=== PATIENT | female | born 1955 | race Two or more races ===

== ENCOUNTER 2017-10-21 12:02 | Inpatient (IN) | payer MEDICAID ==
[~2017-10-21] VITALS: Ht 157.5 cm; Wt 69.3 kg
[2017-10-21] MEDS ORDERED: SODIUM CHLORIDE 0.9% 1,000 ML IV ONE (12:43)
[2017-10-21 13:24] LABS: Basophils # (auto) 0 uL; Basophils % (auto) 0.4 % (0.0-2.0); Eosinophils # (auto) 0.2 uL; Hematocrit 40.8 % (36.0-46.0); Hemoglobin 14.3 g/dL (12.2-16.2); Lymphocytes # (auto) 1.5 uL; Mean Corpuscular Hemoglobin 28.8 pg (28.0-32.0); Mean Corpuscular Volume 82.3 fL (80.0-100.0); Monocytes # (auto) 0.4 uL; Monocytes % (auto) 7.4 % (0.0-12.0); Neutrophils # (auto) 3.4 uL; Neutrophils % (auto) 62.2 % (37.0-80.0); Nucleated Red Blood Cells % 0.1 %; Platelet Count (auto) 152 10^3/uL (140-450); Red Blood Cells 4.95 10^6/uL (4.0-5.20); Red Cell Distribution Width 14.8 % (11.8-14.3); White Blood Cell 5.5 10^3/uL (4.4-10.8)
[2017-10-21] MEDS ORDERED: LABETALOL HCL 5 MG/ML ML 20ML VIAL IV ONE (13:45)
[2017-10-21 14:00] LABS: Albumin 3.5 g/dL (3.4-5.0); BUN/Creatinine Ratio 29.9; Bilirubin, Total 0.6 mg/dL (0.2-1.0); Calcium 8.4 mg/dL (8.5-10.1); Magnesium 2.5 mg/dL (1.6-2.6); Potassium 3.9 mmol/L (3.5-5.1); Total Protein 6.8 g/dL (6.4-8.2)
[2017-10-21 15:57] LABS: Urine Bacteria NONE SEEN /hpf (None Seen); Urine Blood Negative /uL (Negative); Urine Specific Gravity 1.012 (1.001-1.035); Urine WBC <1 /hpf (0 - 5)
[2017-10-21] MEDS ORDERED: NALBUPHINE HCL 10 MG/1ml INJECTION IV ONE (16:00)
[2017-10-21 16:08] LABS: INR 0.88 (0.9-1.15); Partial Thromboplastin Time 26.9 sec (23.78-33.04); Prothrombin Time 9.5 sec (9.27-12.13)
[2017-10-21] MEDS: SODIUM CHLORIDE 0.9% 1,000 ML IV SCH (16:13)
[2017-10-21] MEDS ORDERED: NITROGLYCERIN 0.4 MG SL TAB SL PRN (16:15)
[2017-10-21] MEDS ORDERED: MORPHINE SULF INJ 2 MG/ML SYRINGE 1ML IV PRN (16:15)
[2017-10-21] MEDS ORDERED: DEXTROSE (50%) 50ML SYRG IV PRN (16:15)
[2017-10-21] MEDS ORDERED: LACTULOSE 20Gm/30ML SOLN PO PRN (16:15)
[2017-10-21] MEDS ORDERED: LORazepam 0.5 MG TAB PO PRN (16:15)
[2017-10-21] MEDS: InsuLIN REG 1unit/0.01ml Soln (100units/ml) SC SCH ×2 (17:00→21:57)
[2017-10-21] MEDS: ACCU-CHEK COMFORT CURVE STRIP VI SCH ×2 (17:00→21:35)
[2017-10-21 17:08] LABS: Alcohol, Urine < 3.0 mg/dL (0-5); Amphetamine Screen, Urine NEGATIVE (NEGATIVE); Barbiturate Scree,Urine NEGATIVE (NEGATIVE); Benzodiazephine Screen, Urine NEGATIVE (NEGATIVE); Cannabinoid Screen, Urine NEGATIVE (NEGATIVE); Cocaine Screen, Urine NEGATIVE (NEGATIVE); Opiate Scree,Urine NEGATIVE (NEGATIVE); Phencyclidine Screen, Urine NEGATIVE (NEGATIVE)
[2017-10-21] MEDS ORDERED: METF-370 PO (19:39)
[2017-10-21 21:34] VITALS: BP 189/97
[2017-10-21] MEDS: MORPHINE SULF INJ 2 MG/ML SYRINGE 1ML IV PRN (21:36)
[2017-10-21] MEDS ORDERED: ATORVASTATIN 20 MG TAB PO SCH (22:00)
[2017-10-22] MEDS: LABETALOL HCL 5 MG/ML ML 20ML VIAL IV PRN ×6 (00:41→22:38)
[2017-10-22] MEDS: SODIUM CHLORIDE 0.9% 1,000 ML IV SCH ×3 (01:56→22:10)
[2017-10-22] MEDS: TEMAZEPAM 15 MG CAP PO PRN ×2 (01:56→22:34)
[2017-10-22] MEDS: MORPHINE SULF INJ 2 MG/ML SYRINGE 1ML IV PRN ×2 (04:43→09:16)
[2017-10-22 05:29] VITALS: BP 151/86
[2017-10-22 06:02] LABS: Cholesterol 261 mg/dL (< 200); HDL Cholesterol 20 mg/dL (40-59); Triglycerides 1270 mg/dL (< 150)
[2017-10-22] MEDS: ACCU-CHEK COMFORT CURVE STRIP VI SCH ×4 (07:00→22:00)
[2017-10-22] MEDS: InsuLIN REG 1unit/0.01ml Soln (100units/ml) SC SCH ×4 (07:00→22:00)
[2017-10-22] MEDS: traMADol HCL 50 MG TAB PO PRN ×2 (07:47→22:34)
[2017-10-22 09:00] VITALS: BP 174/80
[2017-10-22] MEDS: PANTOPRAZOLE 40 MG TAB PO SCH (09:15)
[2017-10-22] MEDS: ENOXAPARIN SOD 40 MG/0.4 ML SYRINGE SC SCH (09:15)
[2017-10-22] MEDS ORDERED: ASPirin 81 mg TAB PO SCH (10:00)
[2017-10-22 13:00] VITALS: BP 192/95
[2017-10-22 17:00] VITALS: BP 173/88
[2017-10-22 22:00] VITALS: BP 180/121
[2017-10-22] MEDS: Niacin SR 500mg TAB PO SCH (22:34)
[2017-10-22] MEDS: ATORVASTATIN 20 MG TAB PO SCH (22:35)
[2017-10-23] VITALS (9 sets, daily range): BP systolic 152–177; BP diastolic 77–93
[2017-10-23] MEDS ORDERED: cloNIDine HCL 0.1 MG TAB PO ONE (00:30)
[2017-10-23] MEDS: InsuLIN REG 1unit/0.01ml Soln (100units/ml) SC SCH ×4 (06:46→21:40)
[2017-10-23] MEDS: ACCU-CHEK COMFORT CURVE STRIP VI SCH ×4 (06:46→21:40)
[2017-10-23] MEDS: traMADol HCL 50 MG TAB PO PRN ×2 (06:47→21:05)
[2017-10-23] MEDS: PANTOPRAZOLE 40 MG TAB PO SCH (10:05)
[2017-10-23] MEDS: ASPirin-EC 81 mg tab PO SCH (10:05)
[2017-10-23] MEDS: ENOXAPARIN SOD 40 MG/0.4 ML SYRINGE SC SCH (10:06)
[2017-10-23] MEDS: LABETALOL HCL 5 MG/ML ML 20ML VIAL IV PRN ×4 (10:07→23:53)
[2017-10-23 10:45] LABS: Folate (Folic Acid) 12.91 ng/mL (5.38-24)
[2017-10-23] MEDS: MORPHINE SULF INJ 2 MG/ML SYRINGE 1ML IV PRN ×2 (12:44→18:06)
[2017-10-23] MEDS: METOPROLOL TARTRATE 25 MG TAB PO SCH ×2 (15:42→21:40)
[2017-10-23] MEDS: SODIUM CHLORIDE 0.9% 1,000 ML IV SCH (18:04)
[2017-10-23] MEDS: PROMETHAZINE HCL 25 MG/ML 1ML IV PRN (18:07)
[2017-10-23] MEDS: Niacin SR 500mg TAB PO SCH (21:40)
[2017-10-23] MEDS: ATORVASTATIN 20 MG TAB PO SCH (21:40)
[2017-10-23] MEDS: TEMAZEPAM 15 MG CAP PO PRN (21:42)
[2017-10-24] VITALS (9 sets, daily range): BP systolic 128–228; BP diastolic 75–120
[2017-10-24] MEDS: LABETALOL HCL 5 MG/ML ML 20ML VIAL IV PRN ×5 (02:26→20:09)
[2017-10-24] MEDS: traMADol HCL 50 MG TAB PO PRN ×3 (04:48→19:54)
[2017-10-24] MEDS: InsuLIN REG 1unit/0.01ml Soln (100units/ml) SC SCH ×4 (06:27→22:34)
[2017-10-24] MEDS: SODIUM CHLORIDE 0.9% 1,000 ML IV SCH ×2 (06:27→19:04)
[2017-10-24] MEDS: ACCU-CHEK COMFORT CURVE STRIP VI SCH ×4 (06:27→22:34)
[2017-10-24] MEDS: PANTOPRAZOLE 40 MG TAB PO SCH (08:02)
[2017-10-24] MEDS: METOPROLOL TARTRATE 25 MG TAB PO SCH ×3 (08:02→22:53)
[2017-10-24] MEDS: ASPirin-EC 81 mg tab PO SCH (08:03)
[2017-10-24] MEDS: ENOXAPARIN SOD 40 MG/0.4 ML SYRINGE SC SCH (08:03)
[2017-10-24] MEDS: diphenhdrAMINE HCL 50 MG/1 ML VL IV PRN ×2 (08:05→15:46)
[2017-10-24] MEDS ORDERED: cloNIDine HCL 0.1 MG TAB ONE (20:25)
[2017-10-24] MEDS ORDERED: cloNIDine 0.2 mg/24hr 7DAY PATCH TD ONE (20:30)
[2017-10-24] MEDS ORDERED: cloNIDine HCL 0.1 MG TAB PO ONE (20:30)
[2017-10-24] MEDS: MORPHINE SULF INJ 2 MG/ML SYRINGE 1ML IV PRN (20:33)
[2017-10-24] MEDS: PROMETHAZINE HCL 25 MG/ML 1ML IV PRN (20:33)
[2017-10-24] MEDS ORDERED: hydrALAZINE HCL 20 MG/ML VL IV ONE (21:00)
[2017-10-24] MEDS: Niacin SR 500mg TAB PO SCH (22:33)
[2017-10-24] MEDS: ATORVASTATIN 20 MG TAB PO SCH (22:33)
[2017-10-24] MEDS: TEMAZEPAM 15 MG CAP PO PRN (22:42)
[2017-10-25] VITALS (7 sets, daily range): BP systolic 117–162; BP diastolic 67–93
[2017-10-25] MEDS: ACCU-CHEK COMFORT CURVE STRIP VI SCH ×4 (06:22→21:39)
[2017-10-25] MEDS: InsuLIN REG 1unit/0.01ml Soln (100units/ml) SC SCH ×4 (06:22→21:39)
[2017-10-25] MEDS: traMADol HCL 50 MG TAB PO PRN (08:52)
[2017-10-25] MEDS: SODIUM CHLORIDE 0.9% 1,000 ML IV SCH ×2 (09:23→21:36)
[2017-10-25] MEDS: METOPROLOL TARTRATE 25 MG TAB PO SCH ×3 (10:00→21:39)
[2017-10-25] MEDS: ASPirin-EC 81 mg tab PO SCH (10:39)
[2017-10-25] MEDS: PANTOPRAZOLE 40 MG TAB PO SCH (10:39)
[2017-10-25] MEDS: ENOXAPARIN SOD 40 MG/0.4 ML SYRINGE SC SCH (10:40)
[2017-10-25] MEDS: ACETAMINOPHEN 500 MG TAB PO PRN (10:50)
[2017-10-25] MEDS: ATORVASTATIN 20 MG TAB PO SCH (21:38)
[2017-10-25] MEDS: Niacin SR 500mg TAB PO SCH (21:42)
[2017-10-25] MEDS: TEMAZEPAM 15 MG CAP PO PRN (22:51)
[2017-10-25] MEDS: LABETALOL HCL 5 MG/ML ML 20ML VIAL IV PRN (23:08)
[2017-10-26] MEDS: LABETALOL HCL 5 MG/ML ML 20ML VIAL IV PRN ×3 (01:21→22:52)
[2017-10-26] MEDS: ACETAMINOPHEN 500 MG TAB PO PRN ×3 (02:10→19:22)
[2017-10-26] MEDS ORDERED: hydrALAZINE HCL 20 MG/ML VL IV ONE (03:00)
[2017-10-26 05:00] VITALS: BP 147/79
[2017-10-26] MEDS: ACCU-CHEK COMFORT CURVE STRIP VI SCH ×4 (06:05→21:25)
[2017-10-26] MEDS: InsuLIN REG 1unit/0.01ml Soln (100units/ml) SC SCH ×4 (06:10→21:25)
[2017-10-26] MEDS: MORPHINE SULF INJ 2 MG/ML SYRINGE 1ML IV PRN ×2 (07:03→10:31)
[2017-10-26] MEDS: SODIUM CHLORIDE 0.9% 1,000 ML IV SCH ×2 (08:34→21:04)
[2017-10-26 08:35] VITALS: BP 162/98
[2017-10-26] MEDS: METOPROLOL TARTRATE 25 MG TAB PO SCH ×2 (10:32→21:27)
[2017-10-26] MEDS: ENOXAPARIN SOD 40 MG/0.4 ML SYRINGE SC SCH (10:32)
[2017-10-26] MEDS: PANTOPRAZOLE 40 MG TAB PO SCH (10:33)
[2017-10-26] MEDS: ASPirin-EC 81 mg tab PO SCH (10:33)
[2017-10-26 12:35] VITALS: BP 152/76
[2017-10-26 17:00] VITALS: BP 135/81
[2017-10-26] MEDS: Niacin SR 500mg TAB PO SCH (21:25)
[2017-10-26] MEDS: ATORVASTATIN 20 MG TAB PO SCH (21:26)
[2017-10-26 22:00] VITALS: BP 180/97
[2017-10-26] MEDS: diphenhdrAMINE HCL 50 MG/1 ML VL IV PRN (22:16)
[2017-10-27] MEDS: LABETALOL HCL 5 MG/ML ML 20ML VIAL IV PRN ×2 (00:22→02:31)
[2017-10-27] MEDS ORDERED: cloNIDine HCL 0.1 MG TAB PO ONE (04:00)
[2017-10-27 05:00] VITALS: BP 163/92
[2017-10-27] MEDS: ACCU-CHEK COMFORT CURVE STRIP VI SCH ×2 (06:08→13:11)
[2017-10-27] MEDS: InsuLIN REG 1unit/0.01ml Soln (100units/ml) SC SCH ×2 (06:08→13:11)
[2017-10-27 09:00] VITALS: BP 154/81
[2017-10-27] MEDS: ASPirin-EC 81 mg tab PO SCH (10:56)
[2017-10-27] MEDS: METOPROLOL TARTRATE 25 MG TAB PO SCH (10:56)
[2017-10-27] MEDS: PANTOPRAZOLE 40 MG TAB PO SCH (10:56)
[2017-10-27] MEDS: ENOXAPARIN SOD 40 MG/0.4 ML SYRINGE SC SCH (10:57)
[2017-10-27 13:00] VITALS: BP 168/96
[2017-10-27 15:38] VITALS: BP 143/88
== END 2017-10-27 16:44 | disposition home or self-care (01) | DRG 45 ==
LOC: ER 12:02 → TELE 12:03 → TELE-WESTW 18:09
PROVIDERS: ADMIT Internal Medicine; ATTEND Internal Medicine Pulmonary Disease
DX: I63.9 Cerebral infarction, unspecified (principal); E11.65 Type 2 diabetes mellitus with hyperglycemia; I10 Essential (primary) hypertension; I16.0 Hypertensive urgency; G81.94 Hemiplegia, unspecified affecting left nondominant side; E78.5 Hyperlipidemia, unspecified; F41.9 Anxiety disorder, unspecified; R13.10 Dysphagia, unspecified; R47.1 Dysarthria and anarthria; R29.810 Facial weakness; E78.00 Pure hypercholesterolemia, unspecified; R91.1 Solitary pulmonary nodule; Z83.3 Family history of diabetes mellitus
CPT/HCPCS: 36415; 70450; 71046; 71250; 80053; 80061; 80307; 81001; 82550; 82607; 82746; 82962; 83036; 83735; 84443; 85025; 85610; 85652; 85730; 92610; 93005; 93306; 93886; 96361; 96374; 96375; 97110; 97116; 97530; J1815

== ENCOUNTER 2018-05-10 23:03 | Emergency (ER) | payer MEDICAID ==
[~2018-05-10] VITALS: Ht 157.5 cm; Wt 64.4 kg
[~2018-05-10 23:03] MED LIST: METF-370 PO
[2018-05-10] MEDS ORDERED: cloNIDine HCL 0.1 MG TAB ONE (23:53)
[2018-05-11] MEDS ORDERED: cloNIDine HCL 0.1 MG TAB PO ONE (00:15)
[2018-05-11] MEDS ORDERED: ONDANSETRON ODT 4 MG TAB PO ONE ×2 (00:15)
[2018-05-11] MEDS ORDERED: HYDROcodone-ACET 5/325MG TAB PO ONE ×2 (00:15)
[2018-05-11 00:45] VITALS: BP 212/127
[2018-05-11 00:53] LABS: Basophils # (auto) 0 uL; Basophils % (auto) 0.6 % (0.0-2.0); Eosinophils # (auto) 0.1 uL; Eosinophils % (auto) 1.1 % (0.0-7.0); Hematocrit 48.5 % (36.0-46.0); Hemoglobin 16.9 g/dL (12.2-16.2); Lymphocytes # (auto) 1.9 uL; Lymphocytes % (auto) 24.7 % (10.0-50.0); Mean Corpuscular Hemoglobin 29.9 pg (28.0-32.0); Mean Corpuscular Hgb Conc. 34.8 g/dL (32.0-36.0); Mean Corpuscular Volume 85.9 fL (80.0-100.0); Monocytes # (auto) 0.5 uL; Monocytes % (auto) 6.8 % (0.0-12.0); Neutrophils # (auto) 5.3 uL; Neutrophils % (auto) 66.8 % (37.0-80.0); Nucleated Red Blood Cells % 0.4 %; Platelet Count (auto) 163 10^3/uL (140-450); Red Blood Cells 5.65 10^6/uL (4.0-5.20); Red Cell Distribution Width 14.1 % (11.8-14.3); White Blood Cell 7.9 10^3/uL (4.4-10.8)
[2018-05-11 01:03] LABS: Calcium 8.5 mg/dL (8.5-10.1); Potassium 3.8 mmol/L (3.5-5.1)
[2018-05-11 01:12] LABS: Bilirubin, Total 0.5 mg/dL (0.2-1.0)
[2018-05-11] MEDS ORDERED: ONDANSETRON HCL 4 MG/2 ML VIAL IV ONE (01:15)
[2018-05-11] MEDS ORDERED: HYDROmorphone HCL 2 MG/ML VL IV ONE (01:15)
[2018-05-11 02:21] LABS: BUN/Creatinine Ratio 21.7
== END 2018-05-11 02:45 | disposition home or self-care (01) ==
LOC: ER 23:03
DX: K02.9 Dental caries, unspecified (principal); E11.9 Type 2 diabetes mellitus without complications; I10 Essential (primary) hypertension; R51 Headache
CPT/HCPCS: 36415; 70486; 80053; 82962; 85025; 96374; 96375; 99284; J1170; J2405; Q0162

== ENCOUNTER 2018-08-14 19:21 | Emergency (ER) | payer MEDICAID, OTHER ==
[~2018-08-14] VITALS: Ht 152.4 cm; Wt 63.5 kg
[2018-08-14] MEDS ORDERED: cloNIDine HCL 0.1 MG TAB PO ONE (19:45)
[2018-08-14 19:56] LABS: Basophils # (auto) 0 uL; Basophils % (auto) 0.3 % (0.0-2.0); Eosinophils # (auto) 0.1 uL; Eosinophils % (auto) 2.4 % (0.0-7.0); Hematocrit 43.5 % (36.0-46.0); Hemoglobin 14.6 g/dL (12.2-16.2); Lymphocytes # (auto) 1.1 uL; Lymphocytes % (auto) 20.4 % (10.0-50.0); Mean Corpuscular Hemoglobin 28.8 pg (28.0-32.0); Mean Corpuscular Hgb Conc. 33.6 g/dL (32.0-36.0); Mean Corpuscular Volume 85.6 fL (80.0-100.0); Monocytes # (auto) 0.2 uL; Monocytes % (auto) 4.1 % (0.0-12.0); Neutrophils % (auto) 72.8 % (37.0-80.0); Nucleated Red Blood Cells % 0.1 %; Platelet Count (auto) 159 10^3/uL (140-450); Red Blood Cells 5.09 10^6/uL (4.0-5.20); Red Cell Distribution Width 14.2 % (11.8-14.3); White Blood Cell 5.4 10^3/uL (4.4-10.8)
[2018-08-14 20:09] LABS: INR 0.91 (0.9-1.15); Partial Thromboplastin Time 25.4 sec (23.78-33.04); Prothrombin Time 9.8 sec (9.27-12.13)
[2018-08-14 20:10] LABS: Albumin 3.6 g/dL (3.4-5.0); Anion Gap 7 (5-15); Blood Urea Nitrogen 17 mg/dL (7-18); Calcium 8.2 mg/dL (8.5-10.1); Carbon Dioxide 26 mmol/L (21-32); Chloride 104 mmol/L (98-107); Magnesium 1.8 mg/dL (1.6-2.6); Potassium 3.3 mmol/L (3.5-5.1); Sodium 137 mmol/L (136-145)
[2018-08-14 20:19] LABS: Alanine Aminotransferase 24 U/L (13-56); Alkaline Phosphatase 124 U/L (45-117); Aspartate Aminotransferase 14 U/L (15-37); BUN/Creatinine Ratio 17.3; Bilirubin, Total 0.4 mg/dL (0.2-1.0); GFR African American 74 mL/min; GFR Non-African American 61 mL/min; Total Protein 6.9 g/dL (6.4-8.2)
[2018-08-14 20:30] LABS: Glucose 439 mg/dL (74-106)
[2018-08-14] MEDS ORDERED: MORPHINE SULF INJ 2 MG/ML SYRINGE 1ML IV ONE (20:45)
[2018-08-14] MEDS ORDERED: POTASSIUM CHL 20 Meq TABLET PO ONE (20:45)
[2018-08-14] MEDS ORDERED: ONDANSETRON HCL 4 MG/2 ML VIAL IV ONE (20:45)
[2018-08-14] MEDS ORDERED: SODIUM CHLORIDE 0.9% 1,000 ML IV ONE (20:45)
[2018-08-14] MEDS ORDERED: InsuLIN REG 1unit/0.01ml Soln (100units/ml) IV ONE (20:45)
[2018-08-14] MEDS ORDERED: MORPHINE SULFATE 4 MG/ML SYR/VIAL IV ONE (21:00)
[2018-08-14 22:27] VITALS: BP 148/87
== END 2018-08-14 23:37 | disposition home or self-care (01) ==
LOC: MERGE 19:32 → EDBD 19:32 → ER 19:32
DX: S02.81XA Fracture of other specified skull and facial bones, right side, initial encounter for closed fracture (principal); S05.11XA Contusion of eyeball and orbital tissues, right eye, initial encounter; E11.65 Type 2 diabetes mellitus with hyperglycemia; E87.6 Hypokalemia; I10 Essential (primary) hypertension; F17.210 Nicotine dependence, cigarettes, uncomplicated; Z86.73 Personal history of transient ischemic attack (TIA), and cerebral infarction without residual deficits; W19.XXXA Unspecified fall, initial encounter; Y93.89 Activity, other specified; Y99.8 Other external cause status; Y92.89 Other specified places as the place of occurrence of the external cause
CPT/HCPCS: 36415; 70450; 70486; 71045; 72125; 72128; 72131; 73562; 80053; 82010; 82962; 83735; 83880; 84484; 85025; 85379; 85610; 85730; 93005; 96361; 96374; 96375; 99284; J1815; J2270; J2405; J7030

== ENCOUNTER 2020-06-23 13:41 | Inpatient (IN) | payer MEDICAID ==
[~2020-06-23] VITALS: Ht 157.5 cm; Wt 54.9 kg
[2020-06-23] MEDS ORDERED: SODIUM CHLORIDE 0.9% 1,000 ML IV ONE ×2 (14:00)
[2020-06-23 14:46] LABS: Basophils # (auto) 0.1 10 ^3/uL (0-0.2); Eosinophils # (auto) 0.2 10 ^3/uL (0-0.8); Eosinophils % (auto) 2.3 % (0.0-7.0); Hemoglobin 13.2 g/dL (12.2-16.2); Mean Corpuscular Volume 79.6 fL (80.0-100.0); Nucleated Red Blood Cells % 0.1 %
[2020-06-23 14:47] LABS: Basophils % (auto) 0.6 % (0.0-2.0); Hematocrit 40.1 % (36.0-46.0); Lymphocytes # (auto) 1.1 10 ^3/uL (0.4-5.4); Lymphocytes % (auto) 13.2 % (10.0-50.0); Mean Corpuscular Hemoglobin 26.1 pg (28.0-32.0); Mean Corpuscular Hgb Conc. 32.8 g/dL (32.0-36.0); Monocytes # (auto) 0.5 10 ^3/uL (0-1.3); Monocytes % (auto) 5.5 % (0.0-12.0); Neutrophils # (auto) 6.7 10 ^3/uL (1.6-8.6); Neutrophils % (auto) 78.4 % (37.0-80.0); Platelet Count (auto) 198 10^3/uL (140-450); Red Blood Cells 5.04 10^6/uL (4.0-5.20); Red Cell Distribution Width 17.3 % (11.8-14.3); White Blood Cell 8.5 10^3/uL (4.4-10.8)
[2020-06-23 14:55] LABS: INR 0.96 (0.9-1.15); Partial Thromboplastin Time 24.8 sec (23.0-31.2)
[2020-06-23 15:00] LABS: Albumin 3.4 g/dL (3.4-5.0); Calcium 8.3 mg/dL (8.5-10.1); Potassium 3.5 mmol/L (3.5-5.1)
[2020-06-23] MEDS ORDERED: HYDROcodone-ACET 5/325MG TAB PO ONE (15:00)
[2020-06-23 15:09] LABS: BUN/Creatinine Ratio 19.9; Bilirubin, Total 0.7 mg/dL (0.2-1.0); Total Protein 6.8 g/dL (6.4-8.2)
[2020-06-23] MEDS ORDERED: InsuLIN REG 1unit/0.01ml Soln (100units/ml) IV ONE (15:15)
[2020-06-23 16:03] LABS: Urine Bacteria NONE SEEN /hpf (None Seen); Urine Blood Negative /uL (Negative); Urine Hyaline Cast FEW /lpf (0 - 2); Urine Specific Gravity 1.024 (1.001-1.035); Urine WBC 8 /hpf (0 - 5)
[2020-06-23] MEDS ORDERED: cefTRIAXone 1GM/50ML D5W 50 ML IV ONE (17:00)
[2020-06-23] MEDS ORDERED: DEXTROSE (50%) 50ML SYRG IV PRN ×2 (17:15→18:15)
[2020-06-23] MEDS ORDERED: INSULIN LANTUS (GLARGINE) 1 /0.01ml (100units/ml) SC SCH (17:15)
[2020-06-23] MEDS ORDERED: SODIUM CHLORIDE 0.9% 1,000 ML IV SCH (17:15)
[2020-06-23] MEDS ORDERED: levoFLOXacin 500 MG TAB PO ONE (17:15)
[2020-06-23] MEDS ORDERED: MORPHINE SULF INJ 2 MG/ML SYRINGE 1ML IV PRN ×2 (17:15→18:15)
[2020-06-23] MEDS ORDERED: ONDANSETRON HCL 4 MG/2 ML VIAL IV PRN ×2 (17:15→18:15)
[2020-06-23] MEDS ORDERED: NITROGLYCERIN 0.4 MG SL TAB SL PRN ×2 (17:15→18:15)
[2020-06-23] MEDS ORDERED: ACETAMINOPHEN 325 MG TAB PO PRN ×2 (17:15→18:15)
[2020-06-23] MEDS ORDERED: HYDROcodone-ACET 5/325MG TAB PO PRN ×2 (17:15→18:15)
[2020-06-23] MEDS ORDERED: INSULIN LANTUS (GLARGINE) 1 /0.01ml (100units/ml) SC ONE (18:15)
[2020-06-23] MEDS: SODIUM CHLORIDE 0.9% 1,000 ML IV SCH (18:28)
[2020-06-23] MEDS: InsuLIN REG 1unit/0.01ml Soln (100units/ml) SC SCH ×2 (18:41→21:23)
[2020-06-23] MEDS: INSULIN LANTUS (GLARGINE) 1 /0.01ml (100units/ml) SC SCH (18:42)
[2020-06-23] MEDS: ACCU-CHEK COMFORT CURVE STRIP VI SCH ×3 (18:42→23:57)
[2020-06-23] MEDS ORDERED: ACCU-CHEK COMFORT CURVE STRIP VI SCH (20:00)
[2020-06-23] MEDS ORDERED: InsuLIN REG 1unit/0.01ml Soln (100units/ml) SC SCH (20:00)
[2020-06-23] MEDS ORDERED: ATORVASTATIN 20 MG TAB PO SCH (22:00)
[2020-06-23 23:10] VITALS: BP 112/70
[2020-06-24] MEDS: SODIUM CHLORIDE 0.9% 1,000 ML IV SCH (03:40)
[2020-06-24] MEDS: InsuLIN REG 1unit/0.01ml Soln (100units/ml) SC SCH ×5 (03:58→16:25)
[2020-06-24] MEDS: ACCU-CHEK COMFORT CURVE STRIP VI SCH ×4 (03:58→16:24)
[2020-06-24 05:00] VITALS: BP 103/62
[2020-06-24 07:43] LABS: Basophils # (auto) 0 10 ^3/uL (0-0.2); Monocytes # (auto) 0.8 10 ^3/uL (0-1.3)
[2020-06-24 07:45] LABS: Basophils % (auto) 0.3 % (0.0-2.0); Eosinophils # (auto) 0.6 10 ^3/uL (0-0.8); Eosinophils % (auto) 5.1 % (0.0-7.0); Hematocrit 37.1 % (36.0-46.0); Hemoglobin 12.5 g/dL (12.2-16.2); Lymphocytes % (auto) 27.5 % (10.0-50.0); Mean Corpuscular Hgb Conc. 33.8 g/dL (32.0-36.0); Mean Corpuscular Volume 77.1 fL (80.0-100.0); Monocytes % (auto) 7.6 % (0.0-12.0); Neutrophils # (auto) 6.4 10 ^3/uL (1.6-8.6); Neutrophils % (auto) 59.5 % (37.0-80.0); Nucleated Red Blood Cells % 0.1 %; Platelet Count (auto) 220 10^3/uL (140-450); Red Blood Cells 4.81 10^6/uL (4.0-5.20); White Blood Cell 10.8 10^3/uL (4.4-10.8)
[2020-06-24 07:47] LABS: Calcium 7.8 mg/dL (8.5-10.1)
[2020-06-24 07:49] LABS: BUN/Creatinine Ratio 22.1
[2020-06-24 07:51] LABS: Potassium 2.7 mmol/L (3.5-5.1)
[2020-06-24 08:00] VITALS: BP 111/69
[2020-06-24] MEDS ORDERED: POTASSIUM CHL 20 Meq TABLET PO ONE (08:15)
[2020-06-24] MEDS: SOD CHL 0.9%/ KCL 20MEQ 1,000 ML IV SCH ×2 (08:23→18:15)
[2020-06-24] MEDS: POTASSIUM CHL 20MEQ/100ML 100 ML IV SCH ×2 (08:47→10:54)
[2020-06-24 09:00] VITALS: BP 116/69
[2020-06-24] MEDS: INSULIN LANTUS (GLARGINE) 1 /0.01ml (100units/ml) SC SCH (09:54)
[2020-06-24] MEDS ORDERED: levoFLOXacin 500 MG TAB PO SCH (10:00)
[2020-06-24] MEDS ORDERED: ASPirin 81 mg TAB PO SCH (10:00)
[2020-06-24 13:00] VITALS: BP 123/77
[2020-06-24 17:00] VITALS: BP 152/80
[2020-06-24] MEDS ORDERED: LEVO-28 PO (17:32)
[2020-06-24] MEDS ORDERED: ENAL2.5T7 PO (17:35)
[2020-06-24] MEDS ORDERED: ATOR40TA52 PO (17:35)
[2020-06-24] MEDS ORDERED: METF-370 PO (17:35)
[2020-06-24] MEDS ORDERED: AMLO-489 PO (17:35)
[2020-06-24] MEDS ORDERED: CARV6.2551 PO (17:35)
[2020-06-24] MEDS ORDERED: ASPI-231 PO (17:35)
[2020-06-24] MEDS ORDERED: HYDR25TA5 PO (17:35)
[2020-06-24 18:25] VITALS: BP 123/77
== END 2020-06-24 19:46 | disposition home health service (06) | DRG 207 ==
LOC: ER 13:41 → TELE 13:42 → TELE-EAST 23:10
PROVIDERS: ADMIT Internal Medicine; ATTEND Internal Medicine
DX: I95.9 Hypotension, unspecified (principal); N39.0 Urinary tract infection, site not specified; E11.65 Type 2 diabetes mellitus with hyperglycemia; E78.5 Hyperlipidemia, unspecified; I10 Essential (primary) hypertension; Z20.822 Contact with and (suspected) exposure to COVID-19; Z86.73 Personal history of transient ischemic attack (TIA), and cerebral infarction without residual deficits; N17.9 Acute kidney failure, unspecified
CPT/HCPCS: 36415; 36600; 71045; 80048; 80053; 81001; 82010; 82805; 82962; 84132; 84484; 85025; 85610; 85730; 87040; 87086; 87426; 93005; 96361; 96365; 96366; 96372; 96375; 99291; G0378; J0696; J1815; J2405; J3480

== ENCOUNTER 2021-07-23 14:32 | Inpatient (IN) | payer MEDICAID ==
[~2021-07-23] VITALS: Ht 162.6 cm; Wt 55.3 kg
[~2021-07-23 14:32] MED LIST changes: +AMLO-489 PO; +ASPI1TAB20 PO; +ATOR40TA52 PO; +CARV6.2551 PO; +LEVO-28 PO
[2021-07-23 15:39] LABS: Basophils # (auto) 0.1 10 ^3/uL (0-0.2); Eosinophils # (auto) 0.1 10 ^3/uL (0-0.8); Hematocrit 24.4 % (36.0-46.0); Mean Corpuscular Hemoglobin 12.1 pg (28.0-32.0); Monocytes # (auto) 0.2 10 ^3/uL (0-1.3); Nucleated Red Blood Cells % 0.2 %
[2021-07-23 15:42] LABS: Eosinophils % (auto) 2.4 % (0.0-7.0); Lymphocytes # (auto) 2.4 10 ^3/uL (0.4-5.4); Lymphocytes % (auto) 43.6 % (10.0-50.0); Mean Corpuscular Hgb Conc. 25.6 g/dL (32.0-36.0); Mean Corpuscular Volume 47.3 fL (80.0-100.0); Monocytes % (auto) 4.4 % (0.0-12.0); Neutrophils # (auto) 2.7 10 ^3/uL (1.6-8.6); Neutrophils % (auto) 48.6 % (37.0-80.0); Red Blood Cells 5.17 10^6/uL (4.0-5.20); White Blood Cell 5.5 10^3/uL (4.4-10.8)
[2021-07-23 15:55] LABS: Albumin 3.7 g/dL (3.4-5.0); Calcium 8.7 mg/dL (8.5-10.1); Potassium 4.1 mmol/L (3.5-5.1)
[2021-07-23 15:56] LABS: BUN/Creatinine Ratio 13.6
[2021-07-23 16:04] LABS: Bilirubin, Total 0.4 mg/dL (0.2-1.0); Total Protein 7.1 g/dL (6.4-8.2)
[2021-07-23 16:06] LABS: Red Cell Distribution Width 22.1 % (11.8-14.3)
[2021-07-23 16:15] LABS: Hemoglobin 6.3 g/dL (12.2-16.2)
[2021-07-23] MEDS ORDERED: CALCIUM GLUC 1,000mg/50ml-NS 50 ML IV ONE (17:00)
[2021-07-23] MEDS ORDERED: HYDROcodone-ACET 5/325MG TAB PO PRN (18:00)
[2021-07-23] MEDS ORDERED: ACETAMINOPHEN 325 MG TAB PO PRN (18:00)
[2021-07-23] MEDS ORDERED: ONDANSETRON HCL 4 MG/2 ML VIAL IV PRN (18:00)
[2021-07-23] MEDS ORDERED: NITROGLYCERIN 0.4 MG SL TAB SL PRN (18:00)
[2021-07-23] MEDS ORDERED: MORPHINE SULFATE INJECTION 2 MG/ML SYRG IV PRN (18:00)
[2021-07-23] MEDS ORDERED: MORPHINE SULFATE 4 MG/ML SYR/VIAL IV PRN (18:00)
[2021-07-23 21:07] VITALS: BP 144/71
[2021-07-23 22:00] VITALS: BP 150/84
[2021-07-23 22:15] VITALS: BP 142/83
[2021-07-23 22:30] VITALS: BP 135/83
[2021-07-24] VITALS (11 sets, daily range): BP systolic 125–182; BP diastolic 83–97
[2021-07-24 06:23] LABS: Hemoglobin 7.6 g/dL (12.2-16.2); Monocytes # (auto) 0.3 10 ^3/uL (0-1.3); Nucleated Red Blood Cells % 0.2 %; White Blood Cell 5.8 10^3/uL (4.4-10.8)
[2021-07-24 06:26] LABS: Basophils # (auto) 0 10 ^3/uL (0-0.2); Basophils % (auto) 0.7 % (0.0-2.0); Eosinophils # (auto) 0.2 10 ^3/uL (0-0.8); Eosinophils % (auto) 2.6 % (0.0-7.0); Hematocrit 27.4 % (36.0-46.0); Lymphocytes # (auto) 2.5 10 ^3/uL (0.4-5.4); Lymphocytes % (auto) 43.6 % (10.0-50.0); Mean Corpuscular Hemoglobin 14.8 pg (28.0-32.0); Mean Corpuscular Hgb Conc. 27.8 g/dL (32.0-36.0); Mean Corpuscular Volume 53.3 fL (80.0-100.0); Monocytes % (auto) 5.2 % (0.0-12.0); Neutrophils # (auto) 2.8 10 ^3/uL (1.6-8.6); Neutrophils % (auto) 47.9 % (37.0-80.0); Red Blood Cells 5.14 10^6/uL (4.0-5.20)
[2021-07-24 06:37] LABS: Potassium 3.7 mmol/L (3.5-5.1)
[2021-07-24 06:40] LABS: Red Cell Distribution Width 32.8 % (11.8-14.3)
[2021-07-24 06:54] LABS: Albumin 3.4 g/dL (3.4-5.0); Bilirubin, Total 0.8 mg/dL (0.2-1.0); Calcium 8.6 mg/dL (8.5-10.1); Total Protein 6.5 g/dL (6.4-8.2)
[2021-07-24] MEDS: CARVEDILOL 3.125 MG TAB PO SCH (18:58)
[2021-07-24] MEDS ORDERED: CARVEDILOL 3.125 MG TAB PO ONE (22:45)
[2021-07-24] MEDS: ATORVASTATIN 20 MG TAB PO SCH (22:48)
[2021-07-25 04:52] VITALS: BP 135/92
[2021-07-25 09:00] VITALS: BP 153/86
[2021-07-25] MEDS ORDERED: GOLYTELY 4L KIT PO ONE (09:00)
[2021-07-25] MEDS: amLODIPine BESYLATE 5 MG TAB PO SCH (10:29)
[2021-07-25] MEDS: CARVEDILOL 3.125 MG TAB PO SCH ×2 (10:30→22:00)
[2021-07-25 10:54] LABS: Basophils # (auto) 0 10 ^3/uL (0-0.2); Basophils % (auto) 0.8 % (0.0-2.0); Eosinophils # (auto) 0.3 10 ^3/uL (0-0.8); Eosinophils % (auto) 4.8 % (0.0-7.0); Hemoglobin 9.7 g/dL (12.2-16.2); Mean Corpuscular Volume 59.7 fL (80.0-100.0); Monocytes # (auto) 0.4 10 ^3/uL (0-1.3)
[2021-07-25 10:56] LABS: Hematocrit 33.4 % (36.0-46.0); Lymphocytes % (auto) 35.1 % (10.0-50.0); Mean Corpuscular Hemoglobin 17.3 pg (28.0-32.0); Mean Corpuscular Hgb Conc. 28.9 g/dL (32.0-36.0); Monocytes % (auto) 7.2 % (0.0-12.0); Neutrophils # (auto) 2.9 10 ^3/uL (1.6-8.6); Neutrophils % (auto) 52.1 % (37.0-80.0); Nucleated Red Blood Cells % 0.2 %; White Blood Cell 5.6 10^3/uL (4.4-10.8)
[2021-07-25 13:00] VITALS: BP 141/87
[2021-07-25 17:00] VITALS: BP 147/84
[2021-07-25 22:00] VITALS: BP 158/88
[2021-07-25] MEDS: ATORVASTATIN 20 MG TAB PO SCH (22:17)
[2021-07-26 05:00] VITALS: BP 143/81
[2021-07-26 08:10] VITALS: BP 135/83
[2021-07-26 08:25] LABS: INR 1.03 (0.9-1.15); Partial Thromboplastin Time 25.7 sec (23.6-33.0)
[2021-07-26] MEDS: amLODIPine BESYLATE 5 MG TAB PO SCH (10:11)
[2021-07-26] MEDS: CARVEDILOL 3.125 MG TAB PO SCH ×2 (10:11→22:18)
[2021-07-26 12:20] VITALS: BP 131/73
[2021-07-26 16:15] VITALS: BP 161/62
[2021-07-26 22:00] VITALS: BP 143/83
[2021-07-26] MEDS: ATORVASTATIN 20 MG TAB PO SCH (22:18)
[2021-07-27 05:00] VITALS: BP 139/78
[2021-07-27 06:13] LABS: Potassium 3.5 mmol/L (3.5-5.1)
[2021-07-27 06:18] LABS: BUN/Creatinine Ratio 12.8; Magnesium 2.2 mg/dL (1.6-2.6)
[2021-07-27 07:08] LABS: Hemoglobin 9.8 g/dL (12.2-16.2); Mean Corpuscular Hemoglobin 17.3 pg (28.0-32.0); Mean Corpuscular Hgb Conc. 29.7 g/dL (32.0-36.0); Mean Corpuscular Volume 58.4 fL (80.0-100.0); Red Blood Cells 5.65 10^6/uL (4.0-5.20)
[2021-07-27 07:12] LABS: Red Cell Distribution Width 40.8 % (11.8-14.3)
[2021-07-27 07:16] LABS: Basophils % (manual) 0 (0.0-2.0); Blast Cells 0; Metamyelocytes % 0; Myelocytes % 0; Promyelocytes % 0
[2021-07-27 08:10] VITALS: BP 153/78
[2021-07-27] MEDS ORDERED: LIDOCAINE VISCOUS 2% 15ML UD ONE (08:21)
[2021-07-27] MEDS ORDERED: diphenhdrAMINE HCL 50 MG/1 ML VL ONE (08:21)
[2021-07-27] MEDS ORDERED: SODIUM CHLORIDE LOCK 10 ML ONE (08:22)
[2021-07-27 09:03] LABS: Band Neutrophils % (manual) 1; Eosinophils % (manual) 4 (0-7); Lymphocytes % (manual) 36 (10.0-50.0); Monocytes % (manual) 3 (0-12); Reactive Lymphocytes 5
[2021-07-27] MEDS: fentaNYL CITRATE 100 MCG/2 ML VL ONE ×3 (09:26→09:40)
[2021-07-27] MEDS: MIDAZOLAM HCL 5 MG/ML-1ML VIAL ONE ×3 (09:26→09:40)
[2021-07-27 14:34] VITALS: BP 129/73
[2021-07-27] MEDS: amLODIPine BESYLATE 5 MG TAB PO SCH (14:40)
[2021-07-27] MEDS: PANTOPRAZOLE 40 MG TAB PO SCH ×2 (14:40→22:23)
[2021-07-27] MEDS: CARVEDILOL 3.125 MG TAB PO SCH ×2 (14:41→22:21)
[2021-07-27 15:27] VITALS: BP 129/77
[2021-07-27 16:05] VITALS: BP 112/78
[2021-07-27 22:00] VITALS: BP 130/55
[2021-07-27] MEDS: ATORVASTATIN 20 MG TAB PO SCH (22:23)
[2021-07-28 05:00] VITALS: BP 137/74
[2021-07-28 08:48] VITALS: BP 126/74
[2021-07-28] MEDS: CARVEDILOL 3.125 MG TAB PO SCH (09:45)
[2021-07-28] MEDS: PANTOPRAZOLE 40 MG TAB PO SCH (09:46)
[2021-07-28] MEDS: amLODIPine BESYLATE 5 MG TAB PO SCH (09:46)
[2021-07-28 10:25] LABS: Basophils # (auto) 0 10 ^3/uL (0-0.2); Eosinophils # (auto) 0.2 10 ^3/uL (0-0.8); Eosinophils % (auto) 5.1 % (0.0-7.0); Lymphocytes # (auto) 1.4 10 ^3/uL (0.4-5.4)
[2021-07-28 10:30] LABS: Basophils % (auto) 0.5 % (0.0-2.0); Hematocrit 33.3 % (36.0-46.0); Hemoglobin 9.5 g/dL (12.2-16.2); Lymphocytes % (auto) 32.8 % (10.0-50.0); Mean Corpuscular Hgb Conc. 28.5 g/dL (32.0-36.0); Mean Corpuscular Volume 59.6 fL (80.0-100.0); Monocytes # (auto) 0.4 10 ^3/uL (0-1.3); Monocytes % (auto) 8.1 % (0.0-12.0); Neutrophils # (auto) 2.4 10 ^3/uL (1.6-8.6); Neutrophils % (auto) 53.5 % (37.0-80.0); White Blood Cell 4.4 10^3/uL (4.4-10.8)
[2021-07-28 10:42] LABS: Nucleated Red Blood Cells % 4.3 %; Red Cell Distribution Width 40.4 % (11.8-14.3)
[2021-07-28] MEDS ORDERED: PANT40T PO (11:03)
[2021-07-28] MEDS ORDERED: FER325T PO (11:03)
[2021-07-28 13:00] VITALS: BP 140/84
[2021-07-28 17:14] VITALS: BP 147/74
== END 2021-07-28 18:27 | disposition home health service (06) | DRG 663 ==
LOC: ER 14:38 → WEST WING 18:03 → TELE-WESTW 22:08
PROVIDERS: ADMIT Internal Medicine; ATTEND Internal Medicine
PROC: 30233N1 Transfusion of Nonautologous Red Blood Cells into Peripheral Vein, Percutaneous Approach (ICD-10-PCS; principal; 2021-07-23)
PROC: 0DBN8ZZ Excision of Sigmoid Colon, Via Natural or Artificial Opening Endoscopic (ICD-10-PCS; 2021-07-27)
PROC: 0DB98ZX Excision of Duodenum, Via Natural or Artificial Opening Endoscopic, Diagnostic (ICD-10-PCS; 2021-07-27 09:20)
DX: D50.9 Iron deficiency anemia, unspecified (principal); R16.0 Hepatomegaly, not elsewhere classified; K29.80 Duodenitis without bleeding; E11.9 Type 2 diabetes mellitus without complications; E78.5 Hyperlipidemia, unspecified; I10 Essential (primary) hypertension; K63.5 Polyp of colon; Z20.822 Contact with and (suspected) exposure to COVID-19; Z86.73 Personal history of transient ischemic attack (TIA), and cerebral infarction without residual deficits; Z79.84 Long term (current) use of oral hypoglycemic drugs
CPT/HCPCS: 36415; 43239; 45384; 71045; 74176; 80048; 80053; 83021; 83036; 83735; 83880; 84484; 85007; 85025; 85027; 85610; 85660; 85730; 86850; 86900; 86901; 86920; 93005; 94762; 97110; 97116; 97163; 97530; G0378; J2250